=== PATIENT | male | born 1990 | race Two or more races ===

== ENCOUNTER 2022-11-26 21:42 | Inpatient (IN) | payer MEDICARE, MEDICAID ==
[~2022-11-26] VITALS: Ht 134.6 cm; Wt 42.4 kg
[2022-11-26 22:48] LABS: Basophils # (auto) 0 10 ^3/uL (0-0.2); Basophils % (auto) 0.2 % (0.0-2.0); Eosinophils # (auto) 0.3 10 ^3/uL (0-0.8); Eosinophils % (auto) 2.1 % (0.0-7.0); Hematocrit 45.4 % (41.0-53.0); Hemoglobin 15.2 g/dL (13.5-17.5); Lymphocytes # (auto) 1.5 10 ^3/uL (0.4-5.4); Lymphocytes % (auto) 10.9 % (10.0-50.0); Mean Corpuscular Hemoglobin 32.7 pg (28.0-32.0); Mean Corpuscular Hgb Conc. 33.6 g/dL (32.0-36.0); Mean Corpuscular Volume 97.4 fL (80.0-100.0); Monocytes # (auto) 1.2 10 ^3/uL (0-1.3); Monocytes % (auto) 8.7 % (0.0-12.0); Neutrophils # (auto) 10.9 10 ^3/uL (1.6-8.6); Neutrophils % (auto) 78.1 % (37.0-80.0); Nucleated Red Blood Cells % 0.2 %; Red Blood Cells 4.66 10^6/uL (4.5-5.90); Red Cell Distribution Width 14.6 % (11.8-14.3)
[2022-11-27] MEDS ORDERED: VANCOMYCIN PER PHARMACY 1,000 MG IV SCH
[2022-11-27] MEDS ORDERED: VANCOMYCIN 1GM/250ML 250 ML IV ONE (01:00)
[2022-11-27] MEDS: SODIUM CHLORIDE 0.9% 500 ML IV ONE ×2 (01:00)
[2022-11-27 01:21] LABS: Alanine Aminotransferase 116 U/L (16-61); Albumin 2.2 g/dL (3.4-5.0); Anion Gap 7 (5-15); Aspartate Aminotransferase 88 U/L (15-37); BUN/Creatinine Ratio 30.8 (10.0-20.0); Blood Urea Nitrogen 8 mg/dL (7-18); Carbon Dioxide 26 mmol/L (21-32); Chloride 98 mmol/L (98-107); GFR African American 534 mL/min; GFR Non-African American 441 mL/min; Glucose 76 mg/dL (74-106); Potassium 3.8 mmol/L (3.5-5.1); Sodium 131 mmol/L (136-145)
[2022-11-27 01:24] LABS: Alkaline Phosphatase 237 U/L (45-117); Bilirubin, Total 0.3 mg/dL (0.2-1.0); Total Protein 7.5 g/dL (6.4-8.2)
[2022-11-27 02:31] LABS: Urine Bacteria NONE SEEN /hpf (None Seen); Urine Blood Negative /uL (Negative); Urine Specific Gravity 1.005 (1.001-1.035); Urine WBC <1 /hpf (0 - 3)
[2022-11-27] MEDS ORDERED: ONDANSETRON HCL 4 MG/2 ML VIAL IV PRN (03:00)
[2022-11-27] MEDS ORDERED: NITROGLYCERIN 0.4 MG SL TAB SL PRN (03:00)
[2022-11-27] MEDS ORDERED: MORPHINE SULFATE INJ 2 MG/ml SYRG IV PRN ×2 (03:00)
[2022-11-27] MEDS ORDERED: IBUPROFEN 600 MG TAB PO PRN (03:00)
[2022-11-27] MEDS ORDERED: HYDROcodone-ACET 5/325MG TAB PO PRN (03:00)
[2022-11-27] MEDS ORDERED: DOCUSATE SOD 100 MG CAP PO PRN (03:00)
[2022-11-27] MEDS ORDERED: SODIUM CHLORIDE 0.9% 1,000 ML IV ONE (03:15)
[2022-11-27] MEDS ORDERED: ALBUMIN 25% 100 ML IV ONE (03:15)
[2022-11-27 05:43] LABS: Basophils # (auto) 0 10 ^3/uL (0-0.2); Basophils % (auto) 0.2 % (0.0-2.0); Eosinophils # (auto) 0.1 10 ^3/uL (0-0.8); Eosinophils % (auto) 0.6 % (0.0-7.0); Hematocrit 39.9 % (41.0-53.0); Hemoglobin 14.1 g/dL (13.5-17.5); Lymphocytes # (auto) 0.7 10 ^3/uL (0.4-5.4); Lymphocytes % (auto) 5.4 % (10.0-50.0); Mean Corpuscular Hgb Conc. 35.4 g/dL (32.0-36.0); Mean Corpuscular Volume 93.3 fL (80.0-100.0); Monocytes # (auto) 0.4 10 ^3/uL (0-1.3); Monocytes % (auto) 2.8 % (0.0-12.0); Neutrophils # (auto) 11.9 10 ^3/uL (1.6-8.6); Nucleated Red Blood Cells % 0.2 %; Red Blood Cells 4.28 10^6/uL (4.5-5.90); Red Cell Distribution Width 14.9 % (11.8-14.3)
[2022-11-27 05:46] LABS: Albumin 2.9 g/dL (3.4-5.0); Calcium 7.9 mg/dL (8.5-10.1); Potassium 3.7 mmol/L (3.5-5.1)
[2022-11-27 05:49] LABS: BUN/Creatinine Ratio 17.4 (10.0-20.0); Bilirubin, Total 0.4 mg/dL (0.2-1.0); Total Protein 6.3 g/dL (6.4-8.2)
[2022-11-27] MEDS ORDERED: PIPERACILLIN-TAZO 4.5GM 100 ML IV SCH (06:00)
[2022-11-27] MEDS: LEVOTHYROXINE SODIUM 25 MCG TAB PO SCH ×2 (07:00→07:07)
[2022-11-27] MEDS: VANCOMYCIN 1GM/250ML 250 ML IV SCH ×3 (10:00→11:10)
[2022-11-27] MEDS: FAMOTIDINE (10MG/ML) 2ML VL IV SCH (10:00)
[2022-11-27] MEDS: ASPirin 81 mg TAB PO SCH (10:00)
[2022-11-27] MEDS ORDERED: cefTRIAXone 1GM/50ML D5W 50 ML IV ONE (12:15)
[2022-11-27] MEDS: Ensure HIGH Protein Chocolate 8oz Bottle PO SCH ×2 (19:00→22:00)
[2022-11-28] VITALS (7 sets, daily range): BP systolic 108–127; BP diastolic 68–78
[2022-11-28] MEDS: LEVOTHYROXINE SODIUM 25 MCG TAB PO SCH (05:58)
[2022-11-28] MEDS: Ensure HIGH Protein Chocolate 8oz Bottle PO SCH ×4 (05:58→22:00)
[2022-11-28 09:08] LABS: Albumin 2.4 g/dL (3.4-5.0); Calcium 8.4 mg/dL (8.5-10.1)
[2022-11-28 09:13] LABS: Bilirubin, Total 0.4 mg/dL (0.2-1.0); Total Protein 5.9 g/dL (6.4-8.2)
[2022-11-28 09:16] LABS: Basophils # (auto) 0.1 10 ^3/uL (0-0.2); Basophils % (auto) 0.7 % (0.0-2.0); Eosinophils # (auto) 0.3 10 ^3/uL (0-0.8); Eosinophils % (auto) 1.8 % (0.0-7.0); Hematocrit 38.6 % (41.0-53.0); Hemoglobin 13.6 g/dL (13.5-17.5); Lymphocytes # (auto) 2.2 10 ^3/uL (0.4-5.4); Lymphocytes % (auto) 15.2 % (10.0-50.0); Mean Corpuscular Hemoglobin 32.8 pg (28.0-32.0); Mean Corpuscular Hgb Conc. 35.3 g/dL (32.0-36.0); Mean Corpuscular Volume 92.9 fL (80.0-100.0); Monocytes # (auto) 1.1 10 ^3/uL (0-1.3); Monocytes % (auto) 7.4 % (0.0-12.0); Neutrophils # (auto) 10.6 10 ^3/uL (1.6-8.6); Neutrophils % (auto) 74.9 % (37.0-80.0); Nucleated Red Blood Cells % 0.8 %; Red Blood Cells 4.15 10^6/uL (4.5-5.90); Red Cell Distribution Width 14.7 % (11.8-14.3); White Blood Cell 14.2 10^3/uL (4.4-10.8)
[2022-11-28] MEDS: cefTRIAXone 1GM/50ML D5W 50 ML IV SCH (09:24)
[2022-11-28] MEDS: FAMOTIDINE (10MG/ML) 2ML VL IV SCH (09:31)
[2022-11-28] MEDS: ASPirin 81 mg TAB PO SCH (09:32)
[2022-11-28 10:36] LABS: Hepatitis B Surface Antibody Negative (Negative)
[2022-11-28 11:10] LABS: Hepatitis A Total Antibody Positive (Negative)
[2022-11-28 11:49] LABS: Hepatitis A Ab IgM Negative; Hepatitis B Core IgM Negative
[2022-11-28 11:50] LABS: Hepatitis C Antibody Negative (Negative)
[2022-11-28] MEDS ORDERED: VANCOMYCIN 1GM/250ML 250 ML IV ONE (22:18)
[2022-11-28] MEDS: VANCOMYCIN 1GM/250ML 250 ML IV SCH (22:20)
[2022-11-29 05:00] VITALS: BP 108/69
[2022-11-29] MEDS: Ensure HIGH Protein Chocolate 8oz Bottle PO SCH (06:00)
[2022-11-29] MEDS: LEVOTHYROXINE SODIUM 25 MCG TAB PO SCH (06:58)
[2022-11-29 08:00] VITALS: BP 115/62
[2022-11-29 08:30] VITALS: BP 115/62
[2022-11-29] MEDS ORDERED: CLIN300C8 PO (08:48)
[2022-11-29] MEDS: cefTRIAXone 1GM/50ML D5W 50 ML IV SCH (10:04)
[2022-11-29] MEDS: ASPirin 81 mg TAB PO SCH (10:05)
[2022-11-29] MEDS: FAMOTIDINE (10MG/ML) 2ML VL IV SCH (10:05)
[2022-11-29] MEDS: VANCOMYCIN 1GM/250ML 250 ML IV SCH (11:33)
[2022-11-29] MEDS ORDERED: Ensure Enlive Strawberry 8oz Bottle PO SCH (12:00)
[2022-11-29 12:56] VITALS: BP 108/66
== END 2022-11-29 15:00 | disposition home or self-care (01) | DRG 602 ==
LOC: EDBD 21:42 → ER 21:42 → OVERFLOW 11-27 02:58 → TELE 11-27 03:51 → TELE-CENTR 11-28 02:35
PROVIDERS: ADMIT Nurse Practitioner Family; ATTEND Family Medicine
DX: L03.116 Cellulitis of left lower limb (principal); E43 Unspecified severe protein-calorie malnutrition; E87.1 Hypo-osmolality and hyponatremia; F72 Severe intellectual disabilities; E03.9 Hypothyroidism, unspecified; Z20.822 Contact with and (suspected) exposure to COVID-19; G80.9 Cerebral palsy, unspecified; D69.6 Thrombocytopenia, unspecified; E88.09 Other disorders of plasma-protein metabolism, not elsewhere classified; I95.9 Hypotension, unspecified; R79.89 Other specified abnormal findings of blood chemistry; G40.909 Epilepsy, unspecified, not intractable, without status epilepticus; Z93.1 Gastrostomy status; Z68.23 Body mass index [BMI] 23.0-23.9, adult; Z86.19 Personal history of other infectious and parasitic diseases; Z74.01 Bed confinement status
CPT/HCPCS: 36415; 76705; 80053; 80074; 80202; 81001; 82390; 82542; 82728; 82962; 83605; 84443; 85025; 86038; 86704; 86706; 86708; 86803; 87040; 87086; 87340; 87426; 93971; 96361; 96365; A4565; G0378; J0696; J2543; J3490; J7060; P9047

== ENCOUNTER 2023-02-03 08:00 | Emergency (ER) | payer MEDICARE, MEDICAID ==
[~2023-02-03] VITALS: Ht 152.4 cm; Wt 60.0 kg
[~2023-02-03 08:00] MED LIST: CLIN300C70 PO
[2023-02-03 09:37] VITALS: BP 129/56
[2023-02-03 09:46] LABS: Basophils # (auto) 0 10 ^3/uL (0-0.2); Basophils % (auto) 0.2 % (0.0-2.0); Eosinophils # (auto) 0.1 10 ^3/uL (0-0.8); Eosinophils % (auto) 0.9 % (0.0-7.0); Hemoglobin 14.3 g/dL (13.5-17.5); Lymphocytes # (auto) 1.2 10 ^3/uL (0.4-5.4); Lymphocytes % (auto) 12.5 % (10.0-50.0); Mean Corpuscular Hgb Conc. 34.1 g/dL (32.0-36.0); Monocytes # (auto) 0.7 10 ^3/uL (0-1.3); Monocytes % (auto) 6.8 % (0.0-12.0); Neutrophils # (auto) 7.7 10 ^3/uL (1.6-8.6); Neutrophils % (auto) 79.6 % (37.0-80.0); Nucleated Red Blood Cells % 0.4 %; Red Blood Cells 4.33 10^6/uL (4.5-5.90); Red Cell Distribution Width 16.3 % (11.8-14.3); White Blood Cell 9.7 10^3/uL (4.4-10.8)
[2023-02-03 10:00] LABS: Calcium 8.9 mg/dL (8.5-10.1); Potassium 4.5 mmol/L (3.5-5.1)
[2023-02-03 10:04] LABS: BUN/Creatinine Ratio 19.1 (10.0-20.0); Bilirubin, Total 0.3 mg/dL (0.2-1.0); Total Protein 8.6 g/dL (6.4-8.2)
[2023-02-03] MEDS ORDERED: METR375C PO (10:47)
[2023-02-03] MEDS ORDERED: LOPERAMIDE 1 mg/7.5ml ORAL soln PO ONE (11:00)
[2023-02-03] MEDS ORDERED: SODIUM CHLORIDE 0.9% 1,000 ML IV ONE (11:00)
== END 2023-02-03 17:10 | disposition home or self-care (01) ==
LOC: ER 08:00
DX: K52.9 Noninfective gastroenteritis and colitis, unspecified (principal); Z88.1 Allergy status to other antibiotic agents
CPT/HCPCS: 36415; 80053; 85025; 96360; 99283; J7030

== ENCOUNTER 2023-08-09 13:08 | Inpatient (IN) | payer MEDICARE, MEDICAID ==
[~2023-08-09] VITALS: Ht 152.4 cm; Wt 36.3 kg
[~2023-08-09 13:08] MED LIST changes: +METR375C PO
[2023-08-09] MEDS ORDERED: SODIUM CHLORIDE 0.9% 1,000 ML IV ONE (16:30)
[2023-08-09 16:47] LABS: Basophils # (auto) 0 10 ^3/uL (0-0.2); Basophils % (auto) 0.3 % (0.0-2.0); Eosinophils # (auto) 0 10 ^3/uL (0-0.8); Eosinophils % (auto) 0.1 % (0.0-7.0); Hematocrit 40.7 % (41.0-53.0); Lymphocytes # (auto) 0.6 10 ^3/uL (0.4-5.4); Lymphocytes % (auto) 9.8 % (10.0-50.0); Mean Corpuscular Hemoglobin 34.9 pg (28.0-32.0); Mean Corpuscular Hgb Conc. 34.4 g/dL (32.0-36.0); Mean Corpuscular Volume 101.4 fL (80.0-100.0); Monocytes # (auto) 0.4 10 ^3/uL (0-1.3); Monocytes % (auto) 6.6 % (0.0-12.0); Neutrophils # (auto) 5.2 10 ^3/uL (1.6-8.6); Neutrophils % (auto) 83.2 % (37.0-80.0); Nucleated Red Blood Cells % 0.2 %; Red Blood Cells 4.02 10^6/uL (4.5-5.90); Red Cell Distribution Width 14.9 % (11.8-14.3); White Blood Cell 6.3 10^3/uL (4.4-10.8)
[2023-08-09 17:03] LABS: Alanine Aminotransferase 119 U/L (7-40); Albumin 3.9 g/dL (3.2-4.8); Alkaline Phosphatase 216 U/L (46-116); Anion Gap 3 (5-15); Aspartate Aminotransferase 197 U/L (13-40); BUN/Creatinine Ratio 23.3 (10.0-20.0); Blood Urea Nitrogen 14 mg/dL (9-23); Calcium 8.3 mg/dL (8.7-10.4); Carbon Dioxide 30 mmol/L (20-30); Chloride 94 mmol/L (98-107); Glucose 91 mg/dL (74-106); Lipase 275 U/L (12-53); Potassium 3.5 mmol/L (3.5-5.1); Sodium 127 mmol/L (136-145)
[2023-08-09 17:04] LABS: Bilirubin, Total 0.5 mg/dL (0.2-1.0); Total Protein 7.9 g/dL (5.7-8.2)
[2023-08-09 17:18] LABS: Lactic Acid w/Reflex 2.7 mmol/L (0.4-2.0)
[2023-08-09] MEDS ORDERED: PIPERACILLIN-TAZOB 3.375GM 100 ML IV ONE (17:45)
[2023-08-09 20:55] VITALS: PULSE 64; RESP 16; O2SAT 96
[2023-08-09 21:56] LABS: Urine Bacteria NONE SEEN /hpf (None Seen); Urine Blood Negative /uL (Negative); Urine Clarity Clear (Clear); Urine Color Colorless (Yellow); Urine Hyaline Cast FEW /lpf (0 - 2); Urine Protein, UAD Negative (Negative); Urine Urobilinogen Normal (Negative); Urine WBC 1 /hpf (0 - 3)
[2023-08-09] MEDS ORDERED: IOHEXOL 350 MG/ML 100ML IJ ONE (22:44)
[2023-08-09] MEDS ORDERED: ONDANSETRON HCL 4 MG/2 ML VIAL IV PRN (22:45)
[2023-08-09] MEDS ORDERED: ACETAMINOPHEN 325 MG TAB PO PRN (22:45)
[2023-08-09 23:29] LABS: COVID19 ANTIGEN SOFIA FIA NEGATIVE (NEGATIVE); Rapid Influenza A Negative (Negative); Rapid Influenza B Negative (Negative)
[2023-08-10] MEDS: D5W/SOD CHLO 0.9% 1,000 ML IV SCH ×2 (01:53→12:05)
[2023-08-10 03:00] VITALS: PULSE 61; RESP 16; O2SAT 98
[2023-08-10 04:34] LABS: Basophils # (auto) 0 10 ^3/uL (0-0.2); Basophils % (auto) 0.2 % (0.0-2.0); Eosinophils # (auto) 0 10 ^3/uL (0-0.8); Monocytes # (auto) 0.3 10 ^3/uL (0-1.3); Neutrophils # (auto) 5.1 10 ^3/uL (1.6-8.6)
[2023-08-10 04:37] LABS: Hematocrit 37.4 % (41.0-53.0); Lymphocytes # (auto) 1.1 10 ^3/uL (0.4-5.4); Lymphocytes % (auto) 16.4 % (10.0-50.0); Mean Corpuscular Hemoglobin 34.8 pg (28.0-32.0); Mean Corpuscular Hgb Conc. 34.9 g/dL (32.0-36.0); Mean Corpuscular Volume 99.9 fL (80.0-100.0); Monocytes % (auto) 4.9 % (0.0-12.0); Neutrophils % (auto) 78.5 % (37.0-80.0); Nucleated Red Blood Cells % 0.4 %; Red Blood Cells 3.74 10^6/uL (4.5-5.90); Red Cell Distribution Width 14.8 % (11.8-14.3); White Blood Cell 6.5 10^3/uL (4.4-10.8)
[2023-08-10 04:51] LABS: Alanine Aminotransferase 113 U/L (7-40); Alkaline Phosphatase 198 U/L (46-116); Anion Gap 5 (5-15); Aspartate Aminotransferase 202 U/L (13-40); Bilirubin, Total 0.6 mg/dL (0.2-1.0); Blood Urea Nitrogen 13 mg/dL (9-23); Calcium 7.8 mg/dL (8.7-10.4); Carbon Dioxide 29 mmol/L (20-30); Chloride 106 mmol/L (98-107); Glucose 91 mg/dL (74-106); Potassium 3.4 mmol/L (3.5-5.1); Sodium 140 mmol/L (136-145); Total Protein 6.2 g/dL (5.7-8.2)
[2023-08-10] MEDS ORDERED: CALCIUM GLUC 1,000mg/50ml-NS 50 ML IV ONE (07:30)
[2023-08-10] MEDS ORDERED: POTASSIUM CHL 20MEQ/100ML 100 ML IV ONE (07:30)
[2023-08-10 09:12] VITALS: PULSE 74; RESP 16; O2SAT 97
[2023-08-10] MEDS: ENOXAPARIN SOD 40 MG/0.4 ML SYRINGE SC SCH (10:00)
[2023-08-10] MEDS: AZITHROMYCIN 500MG/ 250ML 250 ML IV SCH (10:00)
[2023-08-10] MEDS: cefTRIAXone 1GM/50ML D5W 50 ML IV SCH (10:24)
[2023-08-10] MEDS ORDERED: ACET-1882 PO (12:55)
[2023-08-10] MEDS ORDERED: POLYPOW59 PO (12:55)
[2023-08-10] MEDS ORDERED: LEVO750T8 PO (12:55)
[2023-08-10 20:40] VITALS: PULSE 69; RESP 32; O2SAT 95
[2023-08-10] MEDS: LACTULOSE 20Gm/30ML SOLN PO SCH ×2 (21:09→21:21)
[2023-08-11] MEDS: D5W/SOD CHLO 0.9% 1,000 ML IV SCH (02:41)
[2023-08-11 07:41] LABS: Alanine Aminotransferase 132 U/L (7-40); Albumin 3.2 g/dL (3.2-4.8); Alkaline Phosphatase 216 U/L (46-116); Anion Gap 8 (5-15); Aspartate Aminotransferase 287 U/L (13-40); BUN/Creatinine Ratio 13.2 (10.0-20.0); Blood Urea Nitrogen 7 mg/dL (9-23); Calcium 8.6 mg/dL (8.5-10.1); Carbon Dioxide 25 mmol/L (20-30); Chloride 109 mmol/L (98-107); Glucose 77 mg/dL (74-106); Potassium 3.6 mmol/L (3.5-5.1); Sodium 142 mmol/L (136-145)
[2023-08-11 07:42] LABS: Bilirubin, Direct 0.1 mg/dL (<0.3); Bilirubin, Total 0.3 mg/dL (0.2-1.0); Total Protein 6.7 g/dL (5.7-8.2)
[2023-08-11 07:53] LABS: INR 0.99 (0.9-1.15); Prothrombin Time 10.4 sec (9.3-11.8)
[2023-08-11 07:58] LABS: Basophils # (auto) 0 10 ^3/uL (0-0.2); Basophils % (auto) 0.3 % (0.0-2.0); Eosinophils # (auto) 0 10 ^3/uL (0-0.8); Eosinophils % (auto) 0.2 % (0.0-7.0); Hematocrit 37.7 % (41.0-53.0); Hemoglobin 12.5 g/dL (13.5-17.5); Lymphocytes # (auto) 1.5 10 ^3/uL (0.4-5.4); Mean Corpuscular Hemoglobin 34.6 pg (28.0-32.0); Mean Corpuscular Hgb Conc. 33.1 g/dL (32.0-36.0); Mean Corpuscular Volume 104.4 fL (80.0-100.0); Monocytes # (auto) 0.6 10 ^3/uL (0-1.3); Neutrophils # (auto) 3.5 10 ^3/uL (1.6-8.6); Neutrophils % (auto) 61.5 % (37.0-80.0); Nucleated Red Blood Cells % 0.8 %; Red Blood Cells 3.62 10^6/uL (4.5-5.90); Red Cell Distribution Width 15.5 % (11.8-14.3); White Blood Cell 5.7 10^3/uL (4.4-10.8)
[2023-08-11 08:00] VITALS: PULSE 67; RESP 24; O2SAT 98
[2023-08-11] MEDS: cefTRIAXone 1GM/50ML D5W 50 ML IV SCH (08:53)
[2023-08-11] MEDS: ENOXAPARIN SOD 40 MG/0.4 ML SYRINGE SC SCH (09:59)
[2023-08-11] MEDS: AZITHROMYCIN 500MG/ 250ML 250 ML IV SCH (09:59)
[2023-08-11] MEDS: LACTULOSE 20Gm/30ML SOLN PO SCH (09:59)
[2023-08-11 10:17] LABS: % Iron Saturation 12.2 % (20-55)
[2023-08-11 14:00] VITALS: BP 121/77; PULSE 97; RESP 18; TEMP 97.1; O2SAT 95
[2023-08-14 09:31] LABS: Hepatitis B Surface Antigen Negative (Negative)
[2023-08-14 09:52] LABS: Hepatitis A Ab IgM Negative
[2023-08-14 09:53] LABS: Hepatitis B Core IgM Negative; Hepatitis C Antibody Negative (Negative)
== END 2023-08-11 14:25 | disposition home health service (06) | DRG 871 ==
LOC: ER 13:08 → EDBD 13:08 → EDUNIT# 13:08 → OVERFLOW 22:45
PROVIDERS: ADMIT Internal Medicine; ATTEND Internal Medicine
DX: A41.9 Sepsis, unspecified organism (principal); J15.69 Pneumonia due to other Gram-negative bacteria; K85.90 Acute pancreatitis without necrosis or infection, unspecified; E87.1 Hypo-osmolality and hyponatremia; L03.119 Cellulitis of unspecified part of limb; N39.0 Urinary tract infection, site not specified; D69.6 Thrombocytopenia, unspecified; G80.9 Cerebral palsy, unspecified; J45.909 Unspecified asthma, uncomplicated; M41.9 Scoliosis, unspecified; R56.9 Unspecified convulsions; R33.9 Retention of urine, unspecified; R79.89 Other specified abnormal findings of blood chemistry; Z20.822 Contact with and (suspected) exposure to COVID-19; K59.00 Constipation, unspecified; N32.89 Other specified disorders of bladder
CPT/HCPCS: 36415; 71045; 71275; 74018; 74176; 76705; 80053; 80074; 81001; 82248; 82306; 82607; 83540; 83550; 83605; 83690; 83735; 84443; 84484; 85025; 85379; 85610; 86308; 87040; 87426; 87804; 93970; 96361; 96365; 96367; 96372; G0378; J2543; J3480